=== PATIENT | male | born 1975 | race African-American/Black ===

== ENCOUNTER 2018-12-31 21:12 | Emergency (ER) | payer MEDICAID ==
[~2018-12-31] VITALS: Ht 177.8 cm; Wt 85.0 kg
[2018-12-31 21:27] VITALS: BP 145/62
== END 2018-12-31 23:11 | disposition home or self-care (01) ==
LOC: ER 21:12
DX: H66.92 Otitis media, unspecified, left ear (principal); F12.10 Cannabis abuse, uncomplicated
CPT/HCPCS: 99283